=== PATIENT | male | born 1935 | race Caucasian/White ===

== ENCOUNTER 2017-07-29 14:30 | Emergency (ER) | payer OTHER, MEDICARE ==
[~2017-07-29] VITALS: Ht 170.2 cm; Wt 222.0 kg
[~2017-07-29 14:30] MED LIST: APIX5TAB3 PO; FINA5TAB11 PO; FURO40TA4 PO; MIDO5TAB PO; ONDA4TAB11 PO; PANT40TA4 PO; SPIR25TA3 PO; ZOLP10TA PO
[2017-07-29] MEDS ORDERED: normal saline 1000ML IV soln IVB ONE ×2 (15:00→17:10)
[2017-07-29 15:39] LABS: BASOPHILS % (AUTO) 0.2 % (0-1); EOSINOPHILS # (AUTO) 0.2 X10'3 (0-0.9); EOSINOPHILS % (AUTO) 1.5 % (0-6); HEMATOCRIT 39.6 % (42.0-52.0); HEMOGLOBIN 13.1 g/dl (14.0-17.9); LYMPHOCYTES # (AUTO) 1.4 X10'3 (1.1-4.8); LYMPHOCYTES % (AUTO) 14.1 % (21-51); MEAN CORPUSCULAR HEMOGLOBIN 30.3 PG (27.0-31.0); MEAN CORPUSCULAR HGB CONC 33.2 % (33.0-36.5); MEAN CORPUSCULAR VOLUME 91.2 FL (78-98); MEAN PLATELET VOLUME 8.5 FL (7.4-10.4); MONOCYTES # (AUTO) 0.8 X10'3 (0-0.9); MONOCYTES % (AUTO) 8.2 % (2-12); NEUTROPHILS # (AUTO) 7.6 X10'3 (1.8-7.7); PLATELET COUNT 255 X10'3 (140-440); RED BLOOD COUNT 4.34 X10'6 (4.70-6.10); RED CELL DISTRIBUTION WIDTH 14.5 % (11.5-14.5)
[2017-07-29 15:49] LABS: INR 1.2 INR; PARTIAL THROMBOPLASTIN TIME 32 SECONDS (22-32); PROTHROMBIN TIME 12.4 SECONDS (9.0-12.0)
[2017-07-29 15:53] LABS: ALANINE AMINOTRANSFERASE 21 U/L (12-78); ALBUMIN 2.2 G/DL (3.4-5.0); ALBUMIN/GLOBULIN RATIO 0.5 (1.1-1.5); ALKALINE PHOSPHATASE 144 IU/L (46-116); ANION GAP 9 (8-16); BILIRUBIN,TOTAL 0.3 MG/DL (0.1-1.0); BLOOD UREA NITROGEN 36 MG/DL (7-18); BUN/CREATININE RATIO 16.9 (5.4-32.0); CALCIUM 8.4 MG/DL (8.5-10.1); CHLORIDE 104 MMOL/L (99-107); CREATININE 2.13 MG/DL (0.60-1.10); GLUCOSE 103 MG/DL (70-104); SODIUM 137 MMOL/L (135-145); TOTAL CARBON DIOXIDE 23.8 MMOL/L (24-32); eGFR 30 ML/MIN
[2017-07-29 15:54] LABS: ASPARTATE AMINO TRANSFERASE 32 U/L (10-37); ETHANOL < 0.010 GM/DL (0.0-0.010); POTASSIUM 4.9 MMOL/L (3.5-5.1)
[2017-07-29 16:54] LABS: CLARITY,URINE CLEAR (Clear); COLOR,URINE YELLOW (Yellow); GLUCOSE, URINE NEGATIVE (Neg); KETONES,URINE NEGATIVE (Neg); LEUKOCYTE ESTERASE ,URINE NEGATIVE (Neg); NITRITES, URINE NEGATIVE (Neg); OCCULT BLOOD,URINE MODERATE (Neg); PROTEIN,URINE NEGATIVE (Neg); UA COLLECTION TYPE STRAIGHT CATH; UROBILINOGEN,URINE 0.2 E.U/dL (0.2-1.0)
[2017-07-29 17:00] LABS: URINE AMPHETAMINE SCREEN NEGATIVE (Neg); URINE BARBITUATE SCREEN NEGATIVE (Neg); URINE BENZODIAZEPINES SCREEN NEGATIVE (Neg); URINE CANNABINOID SCREEN NEGATIVE (Neg); URINE COCAINE SCREEN NEGATIVE (Neg); URINE METHADONE SCREEN NEGATIVE (Neg); URINE OPIATE SCREEN POSITIVE (Neg); URINE PHENCYCLIDINE SCREEN NEGATIVE (Neg)
[2017-07-29 17:16] LABS: BACTERIA,URINE NONE SEEN /HPF (Neg); HYALINE CASTS 0-3 /LPF (NEGATIVE); SQUAMOUS EPITHELIAL CELL,UR FEW /LPF (FEW); WBC,URINE NONE SEEN /HPF (0-4)
[2017-07-29 18:50] VITALS: BP 113/68
== END 2017-07-29 18:51 | disposition home or self-care (01) ==
LOC: ER 14:31
DX: N17.9 Acute kidney failure, unspecified (principal); E86.0 Dehydration; I13.0 Hypertensive heart and chronic kidney disease with heart failure and stage 1 through stage 4 chronic kidney disease, or unspecified chronic kidney disease; I50.9 Heart failure, unspecified; N18.9 Chronic kidney disease, unspecified; Z95.1 Presence of aortocoronary bypass graft; I25.2 Old myocardial infarction; Z79.899 Other long term (current) drug therapy; W07.XXXA Fall from chair, initial encounter; Y93.89 Activity, other specified; Y92.89 Other specified places as the place of occurrence of the external cause; Y99.8 Other external cause status
CPT/HCPCS: 36415; 70450; 71045; 80053; 80305; 80320; 81001; 82140; 83605; 85025; 85610; 85730; 87040; 93005; 96360; 96361; 99285; A4353; J7030

== ENCOUNTER 2018-03-11 00:28 | Inpatient (IN) | payer MEDICARE, OTHER ==
[2018-03-11] VITALS (17 sets, daily range): BP systolic 72–108; BP diastolic 46–77
[~2018-03-11] VITALS: Ht 170.2 cm; Wt 102.7 kg
[~2018-03-11 00:28] MED LIST changes: -SPIR25TA3 PO; +SPIR25TA5 PO
[2018-03-11] MEDS ORDERED: normal saline 1000ML IV soln IVB ONE ×3 (00:45→02:50)
[2018-03-11 01:04] LABS: BASOPHILS % (AUTO) 0.3 % (0-1); EOSINOPHILS % (AUTO) 0.4 % (0-6); HEMATOCRIT 31.7 % (42.0-52.0); HEMOGLOBIN 10.5 g/dl (14.0-17.9); LYMPHOCYTES # (AUTO) 1.5 X10'3 (1.1-4.8); LYMPHOCYTES % (AUTO) 16.3 % (21-51); MEAN CORPUSCULAR HEMOGLOBIN 27.9 PG (27.0-31.0); MEAN CORPUSCULAR VOLUME 84.6 FL (78-98); MEAN PLATELET VOLUME 8.8 FL (7.4-10.4); MONOCYTES # (AUTO) 0.7 X10'3 (0-0.9); MONOCYTES % (AUTO) 7.5 % (2-12); NEUTROPHILS # (AUTO) 7.1 X10'3 (1.8-7.7); NEUTROPHILS % (AUTO) 75.5 % (42-75); PLATELET COUNT 289 X10'3 (140-440); RED BLOOD COUNT 3.75 X10'6 (4.70-6.10); RED CELL DISTRIBUTION WIDTH 14.8 % (11.5-14.5); WHITE BLOOD COUNT 9.3 X10'3 (4.5-11.0)
[2018-03-11 01:14] LABS: ALANINE AMINOTRANSFERASE 16 U/L (12-78); ALBUMIN 2.1 G/DL (3.4-5.0); ALBUMIN/GLOBULIN RATIO 0.5 (1.1-1.5); ALKALINE PHOSPHATASE 148 IU/L (46-116); ANION GAP 9 (8-16); ASPARTATE AMINO TRANSFERASE 18 U/L (10-37); BILIRUBIN,TOTAL 0.4 MG/DL (0.1-1.0); BLOOD UREA NITROGEN 54 MG/DL (7-18); BUN/CREATININE RATIO 24.3 (5.4-32.0); CALCIUM 8.8 MG/DL (8.5-10.1); CHLORIDE 101 MMOL/L (99-107); CREATININE 2.22 MG/DL (0.60-1.10); GLUCOSE 114 MG/DL (70-104); POTASSIUM 4.3 MMOL/L (3.5-5.1); SODIUM 135 MMOL/L (135-145); TOTAL CARBON DIOXIDE 24.8 MMOL/L (24-32); TOTAL PROTEIN 6.6 G/DL (6.4-8.2); eGFR 28 ML/MIN
[2018-03-11 01:16] LABS: INR 1.2 INR; PARTIAL THROMBOPLASTIN TIME 29 SECONDS (22-32); PROTHROMBIN TIME 12.1 SECONDS (9.0-12.0)
[2018-03-11 01:18] LABS: TROPONIN I < 0.04 NG/ML (0.0-0.05)
[2018-03-11 01:21] LABS: ETHANOL < 0.010 GM/DL (0.0-0.010)
[2018-03-11] MEDS ORDERED: OMEP20TA23 PO (01:35)
[2018-03-11] MEDS ORDERED: METO-467 PO (01:35)
[2018-03-11] MEDS ORDERED: ASPI81TA46 PO (01:35)
[2018-03-11] MEDS ORDERED: tranexamic acid 100mg/ml inj. IV ONE ×2 (01:35→01:45)
[2018-03-11] MEDS ORDERED: tranexamic acid inj. 860 MG in normal saline 100ml IV soln 100 ML IV ONE (01:50)
[2018-03-11 02:02] LABS: CLARITY,URINE CLEAR (Clear); COLOR,URINE YELLOW (Yellow); GLUCOSE, URINE NEGATIVE (Neg); KETONES,URINE NEGATIVE (Neg); LEUKOCYTE ESTERASE ,URINE NEGATIVE (Neg); NITRITES, URINE NEGATIVE (Neg); OCCULT BLOOD,URINE NEGATIVE (Neg); PH,URINE 5.5 (4.8-8.0); PROTEIN,URINE NEGATIVE (Neg); UROBILINOGEN,URINE 0.2 E.U/dL (0.2-1.0)
[2018-03-11] MEDS ORDERED: CefTRIAXone 2gm/D5W 50ml 50 ML IV ONE (02:05)
[2018-03-11] MEDS ORDERED: normal saline 1000ML IV soln IV ONE (02:05)
[2018-03-11 02:08] LABS: UA COLLECTION TYPE FOLEY CATH
[2018-03-11] MEDS: NORepinephrine 8mg/ 250ml NS 250 ML IV PRN ×2 (04:33→23:59)
[2018-03-11] MEDS ORDERED: midodrine 5mg tablet PO ONE (05:15)
[2018-03-11] MEDS ORDERED: magnesium hydroxide 30ml (MOM) UD suspension PO PRN (05:15)
[2018-03-11] MEDS ORDERED: albumin (human) 25% 100ml IV 100 ML IV ONE ×2 (05:15)
[2018-03-11] MEDS ORDERED: acetaminophen 325mg tablet PO PRN (05:15)
[2018-03-11] MEDS ORDERED: acetaminophen 650mg rectal suppository RC PRN (05:15)
[2018-03-11] MEDS ORDERED: 0.9 % SODIUM CHLORIDE 10 ML VIAL ONE (09:00)
[2018-03-11] MEDS ORDERED: etomidate 2mg/ml inj. ONE (09:00)
[2018-03-11] MEDS: normal saline 1000ml 1,000 ML IV SCH ×2 (10:01→16:25)
[2018-03-11] MEDS: docusate sod 100mg capsule PO SCH ×2 (10:14→20:09)
[2018-03-11] MEDS: pantoprazole 40mg Tablet.DR PO SCH (10:15)
[2018-03-11] MEDS: finasteride 5mg tablet PO SCH (10:27)
[2018-03-11] MEDS ORDERED: pneumococcal 23-VAL P-sac vacc 25 mcg/0.5ml vial IMVAC ONE (12:10)
[2018-03-11 12:13] LABS: MAGNESIUM 2.7 MG/DL (1.5-2.4)
[2018-03-11] MEDS ORDERED: amiodarone 150mg/dext, iso-os 100 ML IV ONE (12:35)
[2018-03-11] MEDS: amiodarone/D5 360MG/200ML BAG 200 ML IV SCH ×2 (12:55→20:09)
[2018-03-11 13:01] LABS: PHOSPHORUS 3.9 MG/DL (2.3-4.5)
[2018-03-11] MEDS: midodrine 5mg tablet PO SCH ×2 (16:26→23:01)
[2018-03-11 17:30] LABS: CLARITY,URINE CLEAR (Clear); COLOR,URINE YELLOW (Yellow); GLUCOSE, URINE NEGATIVE (Neg); KETONES,URINE NEGATIVE (Neg); LEUKOCYTE ESTERASE ,URINE NEGATIVE (Neg); NITRITES, URINE NEGATIVE (Neg); OCCULT BLOOD,URINE TRACE-INTACT (Neg); PROTEIN,URINE NEGATIVE (Neg); UROBILINOGEN,URINE 0.2 E.U/dL (0.2-1.0)
[2018-03-11 17:36] LABS: UA COLLECTION TYPE STRAIGHT CATH
[2018-03-11 17:38] LABS: BACTERIA,URINE NONE SEEN /HPF (Neg); MUCUS STRANDS FEW /LPF (Neg); RBC,URINE 0-2 /HPF (0-2); SQUAMOUS EPITHELIAL CELL,UR FEW /LPF (FEW); WBC,URINE 0-4 /HPF (0-4)
[2018-03-12] VITALS (23 sets, daily range): BP systolic 86–111; BP diastolic 50–73
[2018-03-12] MEDS: amiodarone/D5 360MG/200ML BAG 200 ML IV SCH ×5 (00:40→22:41)
[2018-03-12] MEDS: normal saline 1000ml 1,000 ML IV SCH ×3 (00:52→21:11)
[2018-03-12 03:40] LABS: BASOPHILS % (AUTO) 0.4 % (0-1); EOSINOPHILS # (AUTO) 0.1 X10'3 (0-0.9); EOSINOPHILS % (AUTO) 1.1 % (0-6); HEMATOCRIT 26.1 % (42.0-52.0); HEMOGLOBIN 8.2 g/dl (14.0-17.9); LYMPHOCYTES # (AUTO) 1.2 X10'3 (1.1-4.8); LYMPHOCYTES % (AUTO) 9.8 % (21-51); MEAN CORPUSCULAR HEMOGLOBIN 26.5 PG (27.0-31.0); MEAN CORPUSCULAR HGB CONC 31.5 % (33.0-36.5); MEAN CORPUSCULAR VOLUME 83.9 FL (78-98); MEAN PLATELET VOLUME 8.2 FL (7.4-10.4); MONOCYTES # (AUTO) 0.9 X10'3 (0-0.9); MONOCYTES % (AUTO) 7.8 % (2-12); NEUTROPHILS # (AUTO) 9.5 X10'3 (1.8-7.7); NEUTROPHILS % (AUTO) 80.9 % (42-75); PLATELET COUNT 279 X10'3 (140-440); RED CELL DISTRIBUTION WIDTH 15.9 % (11.5-14.5); WHITE BLOOD COUNT 11.8 X10'3 (4.5-11.0)
[2018-03-12 03:50] LABS: INR 1.3 INR; PARTIAL THROMBOPLASTIN TIME 32 SECONDS (22-32)
[2018-03-12 03:53] LABS: ALANINE AMINOTRANSFERASE 12 U/L (12-78); ALBUMIN 2.4 G/DL (3.4-5.0); ALBUMIN/GLOBULIN RATIO 0.7 (1.1-1.5); ALKALINE PHOSPHATASE 115 IU/L (46-116); ANION GAP 11 (8-16); ASPARTATE AMINO TRANSFERASE 13 U/L (10-37); BILIRUBIN,TOTAL 0.3 MG/DL (0.1-1.0); BLOOD UREA NITROGEN 28 MG/DL (7-18); BUN/CREATININE RATIO 19.2 (5.4-32.0); CALCIUM 7.8 MG/DL (8.5-10.1); CHLORIDE 110 MMOL/L (99-107); CREATININE 1.46 MG/DL (0.60-1.10); GLUCOSE 133 MG/DL (70-104); MAGNESIUM 1.8 MG/DL (1.5-2.4); PHOSPHORUS 2.7 MG/DL (2.3-4.5); POTASSIUM 3.3 MMOL/L (3.5-5.1); SODIUM 141 MMOL/L (135-145); TOTAL CARBON DIOXIDE 20.4 MMOL/L (24-32); TOTAL PROTEIN 5.7 G/DL (6.4-8.2); eGFR 46 ML/MIN
[2018-03-12] MEDS ORDERED: potassium Cl 20 mEq SR tablet PO PRN ×2 (04:45)
[2018-03-12] MEDS ORDERED: potassium Cl 40MEQ/250ML bag 250 ML IV PRN (04:45)
[2018-03-12] MEDS: potassium Cl 40MEQ/250ML bag 250 ML IV PRN (05:11)
[2018-03-12] MEDS: ondansetron/PF 4mg/2ml inj IV PRN (05:50)
[2018-03-12] MEDS: K and/or MAG REPLACEMENT MC SCH (08:00)
[2018-03-12] MEDS: pantoprazole 40mg Tablet.DR PO SCH (08:11)
[2018-03-12] MEDS: docusate sod 100mg capsule PO SCH ×2 (08:11→20:30)
[2018-03-12] MEDS: midodrine 5mg tablet PO SCH ×2 (08:11→16:23)
[2018-03-12] MEDS: finasteride 5mg tablet PO SCH (08:17)
[2018-03-12] MEDS: acetaminophen 325mg tablet PO PRN ×2 (08:19→15:01)
[2018-03-12] MEDS ORDERED: pneumococcal 23-VAL P-sac vacc 25 mcg/0.5ml vial IMVAC ONE (10:00)
[2018-03-12 19:38] LABS: MAGNESIUM 1.8 MG/DL (1.5-2.4)
[2018-03-13] VITALS (24 sets, daily range): BP systolic 86–114; BP diastolic 49–80
[2018-03-13] MEDS: midodrine 5mg tablet PO SCH ×3 (00:15→15:45)
[2018-03-13] MEDS: NORepinephrine 8mg/ 250ml NS 250 ML IV PRN (00:16)
[2018-03-13] MEDS: normal saline 1000ml 1,000 ML IV SCH (00:16)
[2018-03-13] MEDS ORDERED: morphine 2 MG/ML inj. syringe IV ONE (02:15)
[2018-03-13 03:05] LABS: BASOPHILS % (AUTO) 0.4 % (0-1); EOSINOPHILS # (AUTO) 0.3 X10'3 (0-0.9); EOSINOPHILS % (AUTO) 2.7 % (0-6); HEMATOCRIT 26.1 % (42.0-52.0); HEMOGLOBIN 8.3 g/dl (14.0-17.9); LYMPHOCYTES % (AUTO) 10.3 % (21-51); MEAN CORPUSCULAR HGB CONC 31.9 % (33.0-36.5); MEAN CORPUSCULAR VOLUME 84.8 FL (78-98); MEAN PLATELET VOLUME 7.9 FL (7.4-10.4); MONOCYTES # (AUTO) 0.8 X10'3 (0-0.9); MONOCYTES % (AUTO) 8.1 % (2-12); NEUTROPHILS # (AUTO) 7.6 X10'3 (1.8-7.7); NEUTROPHILS % (AUTO) 78.5 % (42-75); PLATELET COUNT 259 X10'3 (140-440); RED BLOOD COUNT 3.08 X10'6 (4.70-6.10); RED CELL DISTRIBUTION WIDTH 16.3 % (11.5-14.5); WHITE BLOOD COUNT 9.6 X10'3 (4.5-11.0)
[2018-03-13 03:20] LABS: INR 1.2 INR; PARTIAL THROMBOPLASTIN TIME 33 SECONDS (22-32); PROTHROMBIN TIME 12.5 SECONDS (9.0-12.0)
[2018-03-13 03:23] LABS: ALANINE AMINOTRANSFERASE 12 U/L (12-78); ALBUMIN 2.1 G/DL (3.4-5.0); ALBUMIN/GLOBULIN RATIO 0.6 (1.1-1.5); ALKALINE PHOSPHATASE 109 IU/L (46-116); ANION GAP 11 (8-16); ASPARTATE AMINO TRANSFERASE 13 U/L (10-37); BILIRUBIN,TOTAL 0.2 MG/DL (0.1-1.0); BLOOD UREA NITROGEN 23 MG/DL (7-18); CHLORIDE 113 MMOL/L (99-107); CREATININE 1.35 MG/DL (0.60-1.10); GLUCOSE 121 MG/DL (70-104); MAGNESIUM 1.8 MG/DL (1.5-2.4); PHOSPHORUS 2.6 MG/DL (2.3-4.5); POTASSIUM 3.9 MMOL/L (3.5-5.1); SODIUM 143 MMOL/L (135-145); TOTAL PROTEIN 5.4 G/DL (6.4-8.2); eGFR 50 ML/MIN
[2018-03-13] MEDS: pantoprazole 40mg Tablet.DR PO SCH (07:16)
[2018-03-13] MEDS: docusate sod 100mg capsule PO SCH ×2 (07:16→19:38)
[2018-03-13] MEDS: finasteride 5mg tablet PO SCH (07:16)
[2018-03-13] MEDS: amiodarone/D5 360MG/200ML BAG 200 ML IV SCH ×2 (07:17→13:04)
[2018-03-13] MEDS: acetaminophen 325mg tablet PO PRN (07:17)
[2018-03-13] MEDS: K and/or MAG REPLACEMENT MC SCH (08:12)
[2018-03-13] MEDS ORDERED: epoetin 20,000 units/ml inj SQ ONE (10:10)
[2018-03-13] MEDS ORDERED: amiodarone 200mg tablet PO ONE (10:40)
[2018-03-13 11:08] LABS: % IRON SATURATION 6 % (11-46); IRON 10 UG/DL (53-167); TOTAL IRON BINDING CAPACITY 172 UG/DL (259-388)
[2018-03-13 11:15] LABS: FERRITIN 15 NG/ML (26-388)
[2018-03-13] MEDS: HYDROcodone/acetaminophen 10/325mg tab PO PRN (12:59)
[2018-03-13] MEDS: hydrocortisone sod succ/PF 100mg/2ml inj. IV SCH ×2 (14:21→19:38)
[2018-03-13] MEDS: amiodarone 200mg tablet PO SCH (19:38)
[2018-03-14] VITALS (25 sets, daily range): BP systolic 80–118; BP diastolic 40–77
[2018-03-14] MEDS: midodrine 5mg tablet PO SCH ×3 (00:40→16:40)
[2018-03-14] MEDS: hydrocortisone sod succ/PF 100mg/2ml inj. IV SCH ×4 (01:52→20:21)
[2018-03-14 03:17] LABS: BASOPHILS % (AUTO) 0 % (0-1); EOSINOPHILS # (AUTO) 0.2 X10'3 (0-0.9); EOSINOPHILS % (AUTO) 1.7 % (0-6); HEMATOCRIT 28.8 % (42.0-52.0); HEMOGLOBIN 9.3 g/dl (14.0-17.9); LYMPHOCYTES # (AUTO) 0.5 X10'3 (1.1-4.8); LYMPHOCYTES % (AUTO) 3.7 % (21-51); MEAN CORPUSCULAR HEMOGLOBIN 27.2 PG (27.0-31.0); MEAN CORPUSCULAR HGB CONC 32.1 % (33.0-36.5); MEAN CORPUSCULAR VOLUME 84.7 FL (78-98); MEAN PLATELET VOLUME 8.3 FL (7.4-10.4); MONOCYTES # (AUTO) 0.2 X10'3 (0-0.9); MONOCYTES % (AUTO) 1.7 % (2-12); NEUTROPHILS # (AUTO) 13.4 X10'3 (1.8-7.7); NEUTROPHILS % (AUTO) 92.9 % (42-75); PLATELET COUNT 269 X10'3 (140-440); RED CELL DISTRIBUTION WIDTH 16.3 % (11.5-14.5); WHITE BLOOD COUNT 14.5 X10'3 (4.5-11.0)
[2018-03-14 03:25] LABS: ALANINE AMINOTRANSFERASE 15 U/L (12-78); ALBUMIN 2.1 G/DL (3.4-5.0); ALBUMIN/GLOBULIN RATIO 0.6 (1.1-1.5); ALKALINE PHOSPHATASE 125 IU/L (46-116); ANION GAP 10 (8-16); ASPARTATE AMINO TRANSFERASE 15 U/L (10-37); BILIRUBIN,TOTAL 0.3 MG/DL (0.1-1.0); BLOOD UREA NITROGEN 21 MG/DL (7-18); BUN/CREATININE RATIO 16.2 (5.4-32.0); CALCIUM 8.5 MG/DL (8.5-10.1); CHLORIDE 114 MMOL/L (99-107); GLUCOSE 136 MG/DL (70-104); MAGNESIUM 1.9 MG/DL (1.5-2.4); PHOSPHORUS 2.9 MG/DL (2.3-4.5); POTASSIUM 4.2 MMOL/L (3.5-5.1); SODIUM 145 MMOL/L (135-145); TOTAL CARBON DIOXIDE 20.6 MMOL/L (24-32); TOTAL PROTEIN 5.8 G/DL (6.4-8.2); eGFR 53 ML/MIN
[2018-03-14 03:27] LABS: INR 1.2 INR; PARTIAL THROMBOPLASTIN TIME 32 SECONDS (22-32); PROTHROMBIN TIME 12.1 SECONDS (9.0-12.0)
[2018-03-14] MEDS: pantoprazole 40mg Tablet.DR PO SCH (07:49)
[2018-03-14] MEDS: docusate sod 100mg capsule PO SCH ×2 (07:50→20:22)
[2018-03-14] MEDS: amiodarone 200mg tablet PO SCH ×2 (07:50→20:21)
[2018-03-14] MEDS: finasteride 5mg tablet PO SCH (07:53)
[2018-03-14] MEDS: K and/or MAG REPLACEMENT MC SCH (08:00)
[2018-03-14] MEDS ORDERED: sodium ferric gluc complex inj 25 MG in normal saline 50ml IV soln 48 ML IV ONE (10:00)
[2018-03-14] MEDS ORDERED: levoFLOXACIN 500mg tablet PO ONE (10:40)
[2018-03-14] MEDS: levoFLOXACIN 500mg tablet PO SCH (11:58)
[2018-03-14] MEDS: acetaminophen 325mg tablet PO PRN (11:59)
[2018-03-14] MEDS: sodium ferric gluc complex inj 125 MG in normal saline 100ml IV soln 100 ML IV SCH ×2 (14:25→14:57)
[2018-03-15] VITALS (24 sets, daily range): BP systolic 77–111; BP diastolic 50–78
[2018-03-15] MEDS: midodrine 5mg tablet PO SCH ×3 (00:23→16:00)
[2018-03-15 02:45] LABS: BASOPHILS % (AUTO) 0 % (0-1); EOSINOPHILS # (AUTO) 0.2 X10'3 (0-0.9); EOSINOPHILS % (AUTO) 1.4 % (0-6); HEMATOCRIT 29.8 % (42.0-52.0); HEMOGLOBIN 9.6 g/dl (14.0-17.9); LYMPHOCYTES # (AUTO) 0.6 X10'3 (1.1-4.8); LYMPHOCYTES % (AUTO) 4.6 % (21-51); MEAN CORPUSCULAR HEMOGLOBIN 26.9 PG (27.0-31.0); MEAN CORPUSCULAR HGB CONC 32.1 % (33.0-36.5); MEAN CORPUSCULAR VOLUME 83.8 FL (78-98); MEAN PLATELET VOLUME 8.1 FL (7.4-10.4); MONOCYTES # (AUTO) 0.4 X10'3 (0-0.9); MONOCYTES % (AUTO) 3.1 % (2-12); NEUTROPHILS # (AUTO) 12.6 X10'3 (1.8-7.7); NEUTROPHILS % (AUTO) 90.9 % (42-75); PLATELET COUNT 273 X10'3 (140-440); RED BLOOD COUNT 3.55 X10'6 (4.70-6.10); RED CELL DISTRIBUTION WIDTH 16.8 % (11.5-14.5); WHITE BLOOD COUNT 13.8 X10'3 (4.5-11.0)
[2018-03-15] MEDS: hydrocortisone sod succ/PF 100mg/2ml inj. IV SCH ×4 (02:45→20:18)
[2018-03-15 02:58] LABS: INR 1.3 INR; PARTIAL THROMBOPLASTIN TIME 33 SECONDS (22-32); PROTHROMBIN TIME 13.2 SECONDS (9.0-12.0)
[2018-03-15 03:01] LABS: ALANINE AMINOTRANSFERASE 14 U/L (12-78); ALBUMIN/GLOBULIN RATIO 0.5 (1.1-1.5); ALKALINE PHOSPHATASE 132 IU/L (46-116); ANION GAP 12 (8-16); ASPARTATE AMINO TRANSFERASE 12 U/L (10-37); BILIRUBIN,TOTAL 0.3 MG/DL (0.1-1.0); BLOOD UREA NITROGEN 27 MG/DL (7-18); BUN/CREATININE RATIO 17.3 (5.4-32.0); CHLORIDE 112 MMOL/L (99-107); CREATININE 1.56 MG/DL (0.60-1.10); GLUCOSE 104 MG/DL (70-104); MAGNESIUM 1.9 MG/DL (1.5-2.4); PHOSPHORUS 3.2 MG/DL (2.3-4.5); POTASSIUM 4.4 MMOL/L (3.5-5.1); SODIUM 144 MMOL/L (135-145); TOTAL CARBON DIOXIDE 19.9 MMOL/L (24-32); TOTAL PROTEIN 5.9 G/DL (6.4-8.2); eGFR 43 ML/MIN
[2018-03-15] MEDS: docusate sod 100mg capsule PO SCH ×2 (07:44→20:19)
[2018-03-15] MEDS: amiodarone 200mg tablet PO SCH ×2 (07:44→20:19)
[2018-03-15] MEDS: pantoprazole 40mg Tablet.DR PO SCH (07:44)
[2018-03-15] MEDS: finasteride 5mg tablet PO SCH (07:45)
[2018-03-15] MEDS: sodium ferric gluc complex inj 125 MG in normal saline 100ml IV soln 100 ML IV SCH (08:25)
[2018-03-15] MEDS: ondansetron/PF 4mg/2ml inj IV PRN (08:37)
[2018-03-15] MEDS: levoFLOXACIN 500mg tablet PO SCH (11:13)
[2018-03-15] MEDS: lactose-reduced food (Ensure Enlive) - 237ml bottle PO SCH ×2 (13:00→18:00)
[2018-03-15] MEDS ORDERED: fentaNYL/PF 50MCG/1 ML 2ML syringe ONE (14:05)
[2018-03-15] MEDS ORDERED: MIDAZolam 5mg/5ml vial ONE (14:05)
[2018-03-15] MEDS ORDERED: LIDOcaine Viscous 15ml cup ONE (14:06)
[2018-03-15] MEDS: propofol 1000mg/100ml bottle 100 ML IV PRN ×2 (15:46→20:47)
[2018-03-15 15:56] LABS: ABG BASE EXCESS -8.6 mmol/L (-2.0-3.0); ABG HCO3 15.4 mmol/L (22.0-26.0); ABG OXYGEN SATURATION 98.9 % (95-98); ABG PCO2 (T) 27.1 mmHg (35.0-48.0); ABG PH (T) 7.372 (7.350-7.450); ABG PO2 (T) 171.3 mmHg (83-108); FCOHb 0.3 % (0.5-1.5); FMetHb 0.2 % (0.3-1.12); FO2Hb 98.4 % (94-100); PEEP 5 cm H2O; RESPIRATORY RATE 16 b/min; TIDAL VOLUME 450 mL; TOTAL HEMOGLOBIN 10.4 G/dl (14.0-18.0)
[2018-03-15 17:29] LABS: ALANINE AMINOTRANSFERASE 13 U/L (12-78); ALBUMIN/GLOBULIN RATIO 0.5 (1.1-1.5); ALKALINE PHOSPHATASE 116 IU/L (46-116); ANION GAP 14 (8-16); ASPARTATE AMINO TRANSFERASE 13 U/L (10-37); BILIRUBIN,TOTAL 0.4 MG/DL (0.1-1.0); BLOOD UREA NITROGEN 33 MG/DL (7-18); BUN/CREATININE RATIO 18.9 (5.4-32.0); CALCIUM 9.1 MG/DL (8.5-10.1); CHLORIDE 114 MMOL/L (99-107); CREATININE 1.75 MG/DL (0.60-1.10); GLUCOSE 102 MG/DL (70-104); MAGNESIUM 2.1 MG/DL (1.5-2.4); PHOSPHORUS 2.8 MG/DL (2.3-4.5); PREALBUMIN 9.9 MG/DL (19-36); SODIUM 145 MMOL/L (135-145); TOTAL CARBON DIOXIDE 17.5 MMOL/L (24-32); TOTAL PROTEIN 5.7 G/DL (6.4-8.2); TRIGLYCERIDES 127 MG/DL (20-135); eGFR 37 ML/MIN
[2018-03-15] MEDS ORDERED: NORepinephrine 8mg/ 250ml NS 250 ML IV SCH (18:00)
[2018-03-15] MEDS ORDERED: normal saline 1000ml 1,000 ML IV ONE (18:00)
[2018-03-15] MEDS: lactobacillus rhamnosus 10,000 MMU CELLS/CAPSULE PO SCH (20:19)
[2018-03-15] MEDS ORDERED: fat emulsion IV 200 ML, MVI, adult No.4 with vit. K 10 ML, Trace element-5 inj. 1 ML in... IV SCH ×4 (21:00)
[2018-03-15] MEDS ORDERED: Dextrose 10%-water IV solution 1,000 ML IV PRN (21:00)
[2018-03-16] VITALS (18 sets, daily range): BP systolic 82–113; BP diastolic 42–65
[2018-03-16] MEDS: midodrine 5mg tablet PO SCH ×4 (00:44→23:45)
[2018-03-16] MEDS: hydrocortisone sod succ/PF 100mg/2ml inj. IV SCH ×4 (02:08→20:33)
[2018-03-16 03:20] LABS: HEMATOCRIT 26.1 % (42.0-52.0); HEMOGLOBIN 7.7 g/dl (14.0-17.9); MEAN CORPUSCULAR HEMOGLOBIN 24.6 PG (27.0-31.0); MEAN CORPUSCULAR HGB CONC 29.7 % (33.0-36.5); MEAN PLATELET VOLUME 8.4 FL (7.4-10.4); PLATELET COUNT 241 X10'3 (140-440); RED BLOOD COUNT 3.14 X10'6 (4.70-6.10); RED CELL DISTRIBUTION WIDTH 16.5 % (11.5-14.5); WHITE BLOOD COUNT 9.4 X10'3 (4.5-11.0)
[2018-03-16 03:36] LABS: ABG BASE EXCESS -5.6 mmol/L (-2.0-3.0); ABG HCO3 15.6 mmol/L (22.0-26.0); ABG OXYGEN SATURATION 98.4 % (95-98); ABG PCO2 (T) 18.9 mmHg (35.0-48.0); ABG PH (T) 7.535 (7.350-7.450); ALLEN'S TEST Positive; FCOHb 0.3 % (0.5-1.5); FMetHb 0.2 % (0.3-1.12); FO2Hb 97.9 % (94-100); PATIENT TEMPERATURE 36.7; PEEP 5 cm H2O; RESPIRATORY RATE 14 b/min; RESPIRATORY RATE (OBSERVED) 14 b/min; TOTAL HEMOGLOBIN 9.4 G/dl (14.0-18.0)
[2018-03-16 03:49] LABS: ALANINE AMINOTRANSFERASE 12 U/L (12-78); ALBUMIN 1.8 G/DL (3.4-5.0); ALBUMIN/GLOBULIN RATIO 0.5 (1.1-1.5); ALKALINE PHOSPHATASE 102 IU/L (46-116); ANION GAP 10 (8-16); ASPARTATE AMINO TRANSFERASE 11 U/L (10-37); BILIRUBIN,TOTAL 0.4 MG/DL (0.1-1.0); BLOOD UREA NITROGEN 32 MG/DL (7-18); CALCIUM 8.6 MG/DL (8.5-10.1); CHLORIDE 115 MMOL/L (99-107); CREATININE 1.68 MG/DL (0.60-1.10); GLUCOSE 150 MG/DL (70-104); MAGNESIUM 2.1 MG/DL (1.5-2.4); PHOSPHORUS 2.1 MG/DL (2.3-4.5); POTASSIUM 3.4 MMOL/L (3.5-5.1); PREALBUMIN 9.1 MG/DL (19-36); SODIUM 144 MMOL/L (135-145); TOTAL CARBON DIOXIDE 19.3 MMOL/L (24-32); TOTAL PROTEIN 5.1 G/DL (6.4-8.2); TRIGLYCERIDES 147 MG/DL (20-135); eGFR 39 ML/MIN
[2018-03-16 04:04] LABS: INR 1.4 INR; PARTIAL THROMBOPLASTIN TIME 33 SECONDS (22-32); PROTHROMBIN TIME 13.6 SECONDS (9.0-12.0)
[2018-03-16] MEDS: potassium Cl 40MEQ/250ML bag 250 ML IV PRN (04:29)
[2018-03-16] MEDS: propofol 1000mg/100ml bottle 100 ML IV PRN (04:29)
[2018-03-16 05:18] LABS: ANISOCYTOSIS 1+; ELLIPTOCYTES FEW; NUCLEATED RED BLOOD CELLS 2 /100WBC (0-0); PLATELET ESTIMATE NORMAL; TOTAL CELLS COUNTED 100
[2018-03-16] MEDS: docusate sod 100mg capsule PO SCH ×3 (08:00→20:33)
[2018-03-16] MEDS: lactose-reduced food (Ensure Enlive) - 237ml bottle PO SCH ×3 (08:00→18:00)
[2018-03-16] MEDS: finasteride 5mg tablet PO SCH (08:00)
[2018-03-16] MEDS: pantoprazole 40mg Tablet.DR PO SCH (08:30)
[2018-03-16] MEDS: amiodarone 200mg tablet PO SCH ×2 (08:30→20:33)
[2018-03-16] MEDS: lactobacillus rhamnosus 10,000 MMU CELLS/CAPSULE PO SCH ×2 (08:30→20:33)
[2018-03-16] MEDS: sodium ferric gluc complex inj 125 MG in normal saline 100ml IV soln 100 ML IV SCH (08:31)
[2018-03-16] MEDS ORDERED: sodium phosphate inj. 30 MMOL in dextrose 5%-water 250 ML IV PRN (09:15)
[2018-03-16] MEDS ORDERED: magnesium 4gm in 100ml NS 100 ML IV PRN (09:15)
[2018-03-16] MEDS ORDERED: magnesium 1gm/100ml D5W IVPB 100 ML IV PRN (09:15)
[2018-03-16] MEDS ORDERED: magnesium Cl slow-release 64mg tablet PO PRN (09:15)
[2018-03-16] MEDS ORDERED: Neutra Phos packet PO PRN (09:15)
[2018-03-16] MEDS ORDERED: sodium phosphate inj. 15 MMOL in dextrose 5%-water 150 ML IV PRN (09:15)
[2018-03-16] MEDS ORDERED: potassium phosphate inj 15 MMOL in dextrose 5%-water 150 ML IV PRN (09:20)
[2018-03-16] MEDS ORDERED: fat emulsion IV 100 ML, MVI, adult No.4 with vit. K 10 ML, Trace element-5 inj. 1 ML in... IV SCH ×8 (14:30→18:00)
[2018-03-16] MEDS: levoFLOXACIN 250mg tablet PO SCH (14:47)
[2018-03-16] MEDS: Protein Shake (high protein) 240ml (8oz) cup PO SCH ×2 (17:00→19:10)
[2018-03-16] MEDS: HYDROcodone/acetaminophen 10/325mg tab PO PRN (17:53)
[2018-03-17 02:00] VITALS: BP 96/65
[2018-03-17] MEDS: hydrocortisone sod succ/PF 100mg/2ml inj. IV SCH ×4 (02:03→20:55)
[2018-03-17 02:38] LABS: BASOPHILS % (AUTO) 0.2 % (0-1); EOSINOPHILS % (AUTO) 0 % (0-6); HEMATOCRIT 26.9 % (42.0-52.0); HEMOGLOBIN 8.4 g/dl (14.0-17.9); LYMPHOCYTES # (AUTO) 0.6 X10'3 (1.1-4.8); LYMPHOCYTES % (AUTO) 5.3 % (21-51); MEAN CORPUSCULAR HEMOGLOBIN 26.5 PG (27.0-31.0); MEAN CORPUSCULAR HGB CONC 31.5 % (33.0-36.5); MEAN CORPUSCULAR VOLUME 84.2 FL (78-98); MEAN PLATELET VOLUME 8.5 FL (7.4-10.4); MONOCYTES # (AUTO) 0.6 X10'3 (0-0.9); MONOCYTES % (AUTO) 5.4 % (2-12); NEUTROPHILS # (AUTO) 10.2 X10'3 (1.8-7.7); NEUTROPHILS % (AUTO) 89.1 % (42-75); PLATELET COUNT 225 X10'3 (140-440); RED BLOOD COUNT 3.19 X10'6 (4.70-6.10); RED CELL DISTRIBUTION WIDTH 16.9 % (11.5-14.5); WHITE BLOOD COUNT 11.4 X10'3 (4.5-11.0)
[2018-03-17 02:52] LABS: INR 1.3 INR; PARTIAL THROMBOPLASTIN TIME 30 SECONDS (22-32); PROTHROMBIN TIME 13.3 SECONDS (9.0-12.0)
[2018-03-17 02:53] LABS: ALANINE AMINOTRANSFERASE 11 U/L (12-78); ALBUMIN 1.7 G/DL (3.4-5.0); ALBUMIN/GLOBULIN RATIO 0.5 (1.1-1.5); ALKALINE PHOSPHATASE 107 IU/L (46-116); ANION GAP 9 (8-16); ASPARTATE AMINO TRANSFERASE 13 U/L (10-37); BILIRUBIN,TOTAL 0.3 MG/DL (0.1-1.0); BLOOD UREA NITROGEN 34 MG/DL (7-18); BUN/CREATININE RATIO 21.1 (5.4-32.0); CALCIUM 8.9 MG/DL (8.5-10.1); CHLORIDE 115 MMOL/L (99-107); CREATININE 1.61 MG/DL (0.60-1.10); GLUCOSE 183 MG/DL (70-104); MAGNESIUM 2.3 MG/DL (1.5-2.4); PHOSPHORUS 3.7 MG/DL (2.3-4.5); POTASSIUM 4.5 MMOL/L (3.5-5.1); SODIUM 144 MMOL/L (135-145); TOTAL CARBON DIOXIDE 19.9 MMOL/L (24-32); eGFR 41 ML/MIN
[2018-03-17 07:00] VITALS: BP 93/61
[2018-03-17] MEDS: finasteride 5mg tablet PO SCH (08:00)
[2018-03-17] MEDS: amiodarone 200mg tablet PO SCH ×2 (08:15→20:55)
[2018-03-17] MEDS: midodrine 5mg tablet PO SCH ×3 (08:15→23:28)
[2018-03-17] MEDS: docusate sod 100mg capsule PO SCH ×2 (08:15→20:00)
[2018-03-17] MEDS: pantoprazole 40mg Tablet.DR PO SCH (08:15)
[2018-03-17] MEDS: lactobacillus rhamnosus 10,000 MMU CELLS/CAPSULE PO SCH ×2 (08:15→20:55)
[2018-03-17] MEDS: Protein Shake (high protein) 240ml (8oz) cup PO SCH ×4 (08:16→21:00)
[2018-03-17] MEDS: lactose-reduced food (Ensure Enlive) - 237ml bottle PO SCH ×3 (08:16→17:39)
[2018-03-17] MEDS: sodium ferric gluc complex inj 125 MG in normal saline 100ml IV soln 100 ML IV SCH (09:17)
[2018-03-17 11:00] VITALS: BP 101/63
[2018-03-17] MEDS: levoFLOXACIN 250mg tablet PO SCH (12:08)
[2018-03-17] MEDS: HYDROcodone/acetaminophen 10/325mg tab PO PRN (14:35)
[2018-03-17 15:00] VITALS: BP 112/64
[2018-03-17] MEDS ORDERED: morphine 10mg/0.5ml (conc. morphine) oral syringe PO PRN ×2 (15:35)
[2018-03-17 18:00] VITALS: BP 108/68
[2018-03-17 22:00] VITALS: BP 97/61
[2018-03-18 02:00] VITALS: BP 105/71
[2018-03-18] MEDS: hydrocortisone sod succ/PF 100mg/2ml inj. IV SCH ×2 (02:11→08:44)
[2018-03-18 02:33] LABS: BASOPHILS # (AUTO) 0.1 X10'3 (0-0.2); BASOPHILS % (AUTO) 0.8 % (0-1); EOSINOPHILS % (AUTO) 0 % (0-6); HEMATOCRIT 29.3 % (42.0-52.0); HEMOGLOBIN 9.4 g/dl (14.0-17.9); LYMPHOCYTES # (AUTO) 0.8 X10'3 (1.1-4.8); LYMPHOCYTES % (AUTO) 5.4 % (21-51); MEAN CORPUSCULAR HGB CONC 31.9 % (33.0-36.5); MEAN CORPUSCULAR VOLUME 84.6 FL (78-98); MEAN PLATELET VOLUME 8.1 FL (7.4-10.4); MONOCYTES # (AUTO) 0.8 X10'3 (0-0.9); MONOCYTES % (AUTO) 5.9 % (2-12); NEUTROPHILS # (AUTO) 12.4 X10'3 (1.8-7.7); NEUTROPHILS % (AUTO) 87.9 % (42-75); PLATELET COUNT 207 X10'3 (140-440); RED BLOOD COUNT 3.47 X10'6 (4.70-6.10); RED CELL DISTRIBUTION WIDTH 17.3 % (11.5-14.5); WHITE BLOOD COUNT 14.1 X10'3 (4.5-11.0)
[2018-03-18 02:47] LABS: NUCLEATED RED BLOOD CELLS 6 /100WBC (0-0); TOTAL CELLS COUNTED 100
[2018-03-18 02:48] LABS: ALANINE AMINOTRANSFERASE 16 U/L (12-78); ALBUMIN 1.8 G/DL (3.4-5.0); ALBUMIN/GLOBULIN RATIO 0.5 (1.1-1.5); ALKALINE PHOSPHATASE 113 IU/L (46-116); ANION GAP 6 (8-16); ASPARTATE AMINO TRANSFERASE 17 U/L (10-37); BILIRUBIN,TOTAL 0.4 MG/DL (0.1-1.0); BLOOD UREA NITROGEN 35 MG/DL (7-18); BUN/CREATININE RATIO 25.4 (5.4-32.0); CALCIUM 9.4 MG/DL (8.5-10.1); CHLORIDE 115 MMOL/L (99-107); CREATININE 1.38 MG/DL (0.60-1.10); GLUCOSE 145 MG/DL (70-104); MAGNESIUM 2.4 MG/DL (1.5-2.4); PHOSPHORUS 2.8 MG/DL (2.3-4.5); PLATELET ESTIMATE NORMAL; POTASSIUM 4.5 MMOL/L (3.5-5.1); PREALBUMIN 13.8 MG/DL (19-36); SODIUM 144 MMOL/L (135-145); TOTAL CARBON DIOXIDE 23.3 MMOL/L (24-32); TOTAL PROTEIN 5.3 G/DL (6.4-8.2); TRIGLYCERIDES 142 MG/DL (20-135); eGFR 49 ML/MIN
[2018-03-18 02:49] LABS: ANISOCYTOSIS 1+; BURR CELLS 1+; ELLIPTOCYTES 1+; HYPOCHROMASIA 1+; INR 1.3 INR; PARTIAL THROMBOPLASTIN TIME 37 SECONDS (22-32); POLYCHROMASIA 1+; PROTHROMBIN TIME 13.4 SECONDS (9.0-12.0); TARGET CELLS FEW
[2018-03-18 02:50] LABS: GIANT PLATELET FEW; LARGE PLATELETS FEW
[2018-03-18 07:00] VITALS: BP 135/79
[2018-03-18] MEDS: sodium ferric gluc complex inj 125 MG in normal saline 100ml IV soln 100 ML IV SCH (08:42)
[2018-03-18] MEDS: pantoprazole 40mg Tablet.DR PO SCH (08:43)
[2018-03-18] MEDS: lactobacillus rhamnosus 10,000 MMU CELLS/CAPSULE PO SCH ×2 (08:43→21:02)
[2018-03-18] MEDS: Protein Shake (high protein) 240ml (8oz) cup PO SCH ×4 (08:44→21:00)
[2018-03-18] MEDS: finasteride 5mg tablet PO SCH (08:44)
[2018-03-18] MEDS: lactose-reduced food (Ensure Enlive) - 237ml bottle PO SCH ×3 (08:44→18:25)
[2018-03-18] MEDS: docusate sod 100mg capsule PO SCH ×2 (08:44→21:02)
[2018-03-18] MEDS: midodrine 5mg tablet PO SCH ×2 (08:44→16:00)
[2018-03-18] MEDS: amiodarone 200mg tablet PO SCH (08:44)
[2018-03-18 11:00] VITALS: BP 116/73
[2018-03-18] MEDS: levoFLOXACIN 250mg tablet PO SCH (11:05)
[2018-03-18 19:00] VITALS: BP 128/77
[2018-03-19] MEDS: docusate sod 100mg capsule PO SCH (08:13)
[2018-03-19] MEDS: midodrine 5mg tablet PO SCH ×2 (08:13)
[2018-03-19] MEDS: pantoprazole 40mg Tablet.DR PO SCH (08:13)
[2018-03-19] MEDS: finasteride 5mg tablet PO SCH (08:13)
[2018-03-19] MEDS: lactobacillus rhamnosus 10,000 MMU CELLS/CAPSULE PO SCH (08:13)
[2018-03-19] MEDS: lactose-reduced food (Ensure Enlive) - 237ml bottle PO SCH (08:14)
[2018-03-19] MEDS: Protein Shake (high protein) 240ml (8oz) cup PO SCH (08:14)
== END 2018-03-19 16:00 | DRG 393 ==
LOC: ER 00:29 → ED HOLD 05:11 → ICU 2S 05:48 → PCU 3S 03-16 15:56
PROVIDERS: ADMIT Internal Medicine Critical Care Medicine; ATTEND Internal Medicine Critical Care Medicine
PROC: 02HV33Z Insertion of Infusion Device into Superior Vena Cava, Percutaneous Approach (ICD-10-PCS; 2018-03-11)
PROC: 3E02340 Introduction of Influenza Vaccine into Muscle, Percutaneous Approach (ICD-10-PCS; 2018-03-12)
PROC: 3E0234Z Introduction of Serum, Toxoid and Vaccine into Muscle, Percutaneous Approach (ICD-10-PCS; 2018-03-12)
PROC: 5A09357 Assistance with Respiratory Ventilation, Less than 24 Consecutive Hours, Continuous Positive Airway Pressure (ICD-10-PCS; 2018-03-13)
PROC: 5A09357 Assistance with Respiratory Ventilation, Less than 24 Consecutive Hours, Continuous Positive Airway Pressure (ICD-10-PCS; 2018-03-14)
PROC: 5A09357 Assistance with Respiratory Ventilation, Less than 24 Consecutive Hours, Continuous Positive Airway Pressure (ICD-10-PCS; 2018-03-15)
PROC: 0DC58ZZ Extirpation of Matter from Esophagus, Via Natural or Artificial Opening Endoscopic (ICD-10-PCS; 2018-03-15)
PROC: 5A09357 Assistance with Respiratory Ventilation, Less than 24 Consecutive Hours, Continuous Positive Airway Pressure (ICD-10-PCS; principal; 2018-03-16)
PROC: 5A09357 Assistance with Respiratory Ventilation, Less than 24 Consecutive Hours, Continuous Positive Airway Pressure (ICD-10-PCS; 2018-03-17)
PROC: 5A09357 Assistance with Respiratory Ventilation, Less than 24 Consecutive Hours, Continuous Positive Airway Pressure (ICD-10-PCS; 2018-03-18)
DX: T18.128A Food in esophagus causing other injury, initial encounter (principal); E43 Unspecified severe protein-calorie malnutrition; N17.9 Acute kidney failure, unspecified; R57.9 Shock, unspecified; I50.9 Heart failure, unspecified; E87.70 Fluid overload, unspecified; E66.9 Obesity, unspecified; I11.0 Hypertensive heart disease with heart failure; I25.10 Atherosclerotic heart disease of native coronary artery without angina pectoris; K22.0 Achalasia of cardia; M79.601 Pain in right arm; K29.70 Gastritis, unspecified, without bleeding; W05.0XXA Fall from non-moving wheelchair, initial encounter; I48.91 Unspecified atrial fibrillation; J44.9 Chronic obstructive pulmonary disease, unspecified; K21.0 Gastro-esophageal reflux disease with esophagitis; D64.9 Anemia, unspecified; N40.0 Benign prostatic hyperplasia without lower urinary tract symptoms; Z51.5 Encounter for palliative care; R13.10 Dysphagia, unspecified; S01.01XA Laceration without foreign body of scalp, initial encounter; I25.2 Old myocardial infarction; Z90.49 Acquired absence of other specified parts of digestive tract; Z95.5 Presence of coronary angioplasty implant and graft; Z23 Encounter for immunization; Z79.899 Other long term (current) drug therapy; Z79.82 Long term (current) use of aspirin; Z82.49 Family history of ischemic heart disease and other diseases of the circulatory system; Z68.35 Body mass index [BMI] 35.0-35.9, adult; Y93.89 Activity, other specified; Y92.098 Other place in other non-institutional residence as the place of occurrence of the external cause; Y99.8 Other external cause status
CPT/HCPCS: 36415; 36556; 36600; 70450; 71045; 71250; 74176; 80053; 80320; 81001; 81003; 82533; 82728; 82803; 82948; 83540; 83550; 83605; 83735; 83880; 84100; 84132; 84134; 84439; 84443; 84478; 84484; 85018; 85025; 85610; 85730; 86885; 86900; 86901; 86920; 87040; 87070; 90732; 92616; 93308; 94002; 94003; 94760; 96361; 96365; 96367; 97110; 97162; 97530; 99152; 99153; 99291; G0378; J0282; J0696; J0885; J1720; J2250; J2270; J2405; J2704; J2916; J3010; J3480; J3490; J7030; J7040; J7060; P9047